=== PATIENT | male | born 1980 | race Caucasian/White ===

== ENCOUNTER 2017-06-26 09:17 | Day surgery (SDC) | payer OTHER ==
[~2017-06-26 09:17] MED LIST: ATROPINE 1 MG/10 ML SYRINGE IV; DIPHENHYDRAMINE 50 MG INJ IV; EPHEDrine SULFATE 50 MG/5 ML SYG IV; FENTAnyl 50 MCG/ML VIAL; FENTAnyl 50 MCG/ML VIAL IV; GLYCOPYRROLATE 1 MG INJ; HYDROmorphONE (0.2 MG/ML) 10ML SYG IV; LABETALOL HCL 20MG INJ IV; LIDOCAINE 2% (SDV) 5 ML INJ; MEPERIDINE 25 MG INJ IV; MIDAZOLAM 1 MG/ML 2 ML INJ; MIDAZOLAM 1 MG/ML 2 ML INJ IV; NEOSTIGMINE 3 MG/3 ML SYRINGE; OXYCODONE/ACETAMINOPHEN (5/325) TAB PO; PROPOFOL 20 ML; ROCURONIUM 50 MG INJ; ROPIVACAINE 0.5 % 30 ML VIAL; hydrALAzine 20 MG INJ IV; morphine (1 MG/ML) 10ML SYRINGE IV
[2017-06-26] MEDS ORDERED: ONDANSETRON 4 MG INJ (13:56)
[2017-06-26] MEDS ORDERED: DEXAMETHASONE 4 MG/ML 1 ML INJ (13:56)
[2017-06-26] MEDS: POLYMYXIN/BACITRACIN 1L IRRIG (14:48)
[2017-06-26] MEDS: METHYLENE BLUE 1% 10 ML INJ (14:48)
[2017-06-26] MEDS: ROPIVACAINE 0.5 % 30 ML VIAL (14:49)
[2017-06-26] MEDS: POVIDONE IODINE 10% 28.4 GM OINT (15:08)
[2017-06-26] MEDS ORDERED: SUCCINYLCHOLINE CHLORIDE 100 MG/5 ML SYG IV (15:36)
[2017-06-26] MEDS ORDERED: CEFAZOLIN 1 GM INJ ×3 (15:36)
[2017-06-26] MEDS ORDERED: SOD CHLORIDE 0.9% 1,000 ML IV (17:07)
[2017-06-26] MEDS ORDERED: HYDROmorphONE (0.2 MG/ML) 10ML SYG IV (17:10)
[2017-06-26] MEDS: ONDANSETRON 4 MG INJ IV (17:29)
[2017-06-26] MEDS ORDERED: ONDANSETRON 4 MG INJ IV (17:30)
[2017-06-26] MEDS ORDERED: morphine 2 MG INJ IV (17:30)
[2017-06-26] MEDS ORDERED: OXYCODONE/ACETAMINOPHEN (5/325) TAB PO ×2 (17:30)
[2017-06-26] MEDS: OXYCODONE/ACETAMINOPHEN (5/325) TAB PO (19:09)
== END 2017-06-27 08:58 | disposition home or self-care (01) ==
LOC: SDS 09:17
DX: M20.11 Hallux valgus (acquired), right foot (principal); M21.611 Bunion of right foot
CPT/HCPCS: 28299; 73630